=== PATIENT | female | born 1985 | race Caucasian/White ===

== ENCOUNTER 2016-10-21 12:02 | Inpatient (IN) | payer BC ==
[~2016-10-21] VITALS: Ht 175.3 cm; Wt 97.5 kg
[~2016-10-21 12:02] MED LIST: LIDOCAINE 2% MPF 10 ML EPIDURAL ONE
[2016-10-21] MEDS ORDERED: CEFAZOLIN (LD/OB) 100 ML IV PRN (12:35)
[2016-10-21] MEDS ORDERED: ALU/MAG/SIM 30 ML UDC PO PRN (12:35)
[2016-10-21] MEDS ORDERED: LIDOCAINE 1% BUFFERED 1 ML SYR INTRADERM PRN (12:35)
[2016-10-21] MEDS ORDERED: OXYTOCIN 15 UNITS/250 ML NS 250 ML IV SCH ×3 (12:35→23:10)
[2016-10-21] MEDS ORDERED: FAMOTIDINE 20 MG INJ IV PRN (12:35)
[2016-10-21] MEDS ORDERED: TERBUTALINE 1 MG/ML VIAL SUBQ PRN (12:35)
[2016-10-21] MEDS ORDERED: FAMOTIDINE 20 MG TAB PO PRN (12:35)
[2016-10-21] MEDS ORDERED: LIDOCAINE 1% 30 ML PF INFILTRATE ONE (12:35)
[2016-10-21] MEDS ORDERED: ONDANSETRON 4 MG VIAL IV PRN (12:35)
[2016-10-21] MEDS ORDERED: PROMETHAZINE 25 MG/ML VIAL IV PRN (12:35)
[2016-10-21] MEDS ORDERED: LACT RINGERS 1,000 ML IV SCH (12:35)
[2016-10-21] MEDS ORDERED: METOCLOPRAMIDE 10 MG/2 ML VIAL IV PUSH PRN (12:35)
[2016-10-21] MEDS ORDERED: ACETAMINOPHEN 325 MG TAB PO PRN (12:35)
[2016-10-21 12:53] VITALS: Ht 175.3 cm; Wt 97.5 kg
[2016-10-21] MEDS ORDERED: ROPIV/FENT 0.2%-2MCG/ML 100 ML EPIDURAL ONE (17:59)
[2016-10-21] MEDS ORDERED: FENTANYL 100 MCG/2 ML AMP ONE (18:00)
[2016-10-21] MEDS ORDERED: LACT RINGERS 500 ML IV ONE (18:25)
[2016-10-21] MEDS ORDERED: SODIUM CHLORIDE 0.9% 500 ML IV PRN (18:25)
[2016-10-21] MEDS ORDERED: FENTANYL 100 MCG/2 ML AMP EPIDURAL ONE (18:25)
[2016-10-21] MEDS ORDERED: ROPIV/FENT 0.2%-2MCG/ML 100 ML EPIDURAL SCH (18:25)
[2016-10-21] MEDS ORDERED: LACT RINGERS 500 ML IV PRN (18:25)
[2016-10-21] MEDS ORDERED: **ONLY ANESTEHSIA MAY ORDER OPIATES WHILE ON EPIDURAL XX SCH (20:00)
[2016-10-21] MEDS ORDERED: LIDOCAINE 1% 30 ML PF ONE (22:22)
[2016-10-21 22:45] VITALS: BP_SYST 116; RESP 20
[2016-10-21 23:00] VITALS: BP_SYST 117; RESP 18
[2016-10-21] MEDS ORDERED: ZOLPIDEM 5 MG TAB PO PRN (23:10)
[2016-10-21] MEDS ORDERED: MEASLES,MUMPS,RUBELLA VAC SUBQ.VACC ONE (23:10)
[2016-10-21] MEDS ORDERED: MAG HYDROX 30 ML UDC PO PRN (23:10)
[2016-10-21] MEDS ORDERED: ASTRINGENT MED PADS 40'S TOPICAL PRN (23:10)
[2016-10-21] MEDS ORDERED: TDaP 0.5 ML VIAL IM.VACC ONE (23:10)
[2016-10-21] MEDS ORDERED: DERMOPLAST SPRAY TOPICAL PRN (23:10)
[2016-10-21 23:15] VITALS: BP_SYST 120; RESP 18
[2016-10-21 23:29] VITALS: BP_SYST 117; RESP 18
[2016-10-22] VITALS (11 sets, daily range): BP systolic 94–135; RESP 16–24; TEMP 98.2–99.8
[2016-10-22] MEDS ORDERED: LACT RINGERS 1,000 ML IV ONE (02:42)
[2016-10-22] MEDS: Ibuprofen 600 MG TAB PO PRN ×4 (04:34→23:45)
[2016-10-22] MEDS: DOCUSATE SOD 100 MG CAP PO SCH ×2 (09:11→21:28)
[2016-10-23 05:41] VITALS: BP_SYST 112; RESP 17; TEMP 98.5
[2016-10-23] MEDS: Ibuprofen 600 MG TAB PO PRN ×2 (05:57→11:30)
[2016-10-23] MEDS: DOCUSATE SOD 100 MG CAP PO SCH (09:12)
[2016-10-23 10:02] VITALS: BP_SYST 118; RESP 16; TEMP 98.7
[2016-10-23 13:39] VITALS: BP_SYST 125; RESP 16; TEMP 98.5
[2016-10-23 15:08] VITALS: BP_SYST 125; RESP 16; TEMP 98.5
== END 2016-10-23 15:34 | disposition home or self-care (01) | DRG 775 ==
LOC: LDOP 12:02 → LD 12:19 → OB 10-22 03:45
PROVIDERS: ADMIT Obstetrics & Gynecology; ATTEND Obstetrics & Gynecology
PROC: 10E0XZZ Delivery of Products of Conception, External Approach (ICD-10-PCS; principal; 2016-10-21)
PROC: 0DQR0ZZ Repair Anal Sphincter, Open Approach (ICD-10-PCS; 2016-10-21)
PROC: 0W8NXZZ Division of Female Perineum, External Approach (ICD-10-PCS; 2016-10-21)
PROC: 10907ZC Drainage of Amniotic Fluid, Therapeutic from Products of Conception, Via Natural or Artificial Opening (ICD-10-PCS; 2016-10-21)
DX: O70.20 Third degree perineal laceration during delivery, unspecified (principal); Z37.0 Single live birth; Z3A.39 39 weeks gestation of pregnancy
CPT/HCPCS: 82803; 85025; 86850; 86870; 86900; 86901; 86970